=== PATIENT | male | born 1975 | race African-American/Black ===

== ENCOUNTER 2018-03-26 19:26 | Inpatient (IN) | payer MEDICAID ==
[~2018-03-26] VITALS: Ht 180.3 cm; Wt 88.9 kg
[2018-03-26 20:10] LABS: BASOPHILS % (AUTO) 0.5 % (0.0-2.0); EOSINOPHILS % (AUTO) 5.4 % (0.0-3.0); HEMATOCRIT 39.6 % (42.0-52.0); HEMOGLOBIN 12.6 G/DL (14.2-18.0); LYMPHOCYTES % (AUTO) 44.2 % (20.0-45.0); MEAN CORPUSCULAR VOLUME 76 FL (80-99); MONOCYTES % (AUTO) 10.4 % (1.0-10.0); NEUTROPHILS % (AUTO) 39.6 % (45.0-75.0); PLATELET COUNT 165 K/UL (150-450); RED BLOOD COUNT 5.19 M/UL (4.70-6.10); RED CELL DISTRIBUTION WIDTH 13.6 % (11.6-14.8); WHITE BLOOD COUNT 6.1 K/UL (4.8-10.8)
[2018-03-26 20:31] LABS: ANION GAP 9 mmol/L (5-15); BLOOD UREA NITROGEN 13 mg/dL (7-18); CALCIUM 9.2 MG/DL (8.5-10.1); CARBON DIOXIDE 26 MMOL/L (21-32); CHLORIDE 106 MMOL/L (98-107); CREATININE 1.3 MG/DL (0.55-1.30); POTASSIUM 3.8 MMOL/L (3.5-5.1); SODIUM 141 MMOL/L (136-145)
[2018-03-26 20:35] LABS: ALANINE AMINOTRANSFERASE 28 U/L (12-78); ALBUMIN 3.5 G/DL (3.4-5.0); ALBUMIN/GLOBULIN RATIO 0.6 (1.0-2.7); ALKALINE PHOSPHATASE 56 U/L (46-116); ASPARTATE AMINO TRANSFERASE 28 U/L (15-37); BILIRUBIN,TOTAL 0.2 MG/DL (0.2-1.0); CKMB 2.9 NG/ML (0.0-3.6); CREATINE KINASE 192 U/L (26-308)
[2018-03-26 21:05] VITALS: BP 149/95
[2018-03-26 21:14] LABS: APPEARANCE,URINE CLEAR; BILIRUBIN, URINE NEGATIVE (NEGATIVE); COLOR,URINE PALE YELLOW; GLUCOSE, URINE (UA) NEGATIVE (NEGATIVE); KETONES,URINE NEGATIVE (NEGATIVE); LEUKOCYTE ESTERASE ,URINE NEGATIVE (NEGATIVE); NITRITE,URINE NEGATIVE (NEGATIVE); PH,URINE 9 (4.5-8.0); PROTEIN,URINE NEGATIVE (NEGATIVE); UROBILINOGEN,URINE NORMAL MG/DL (0.0-1.0)
--- NOTE | 2018-03-26 21:32 | Emergency Room Report ---
History of Present Illness General Chief Complaint: Multiple Trauma/Fall Source: Patient, Medical Record Present Illness HPI This patient states he has a history of an arrhythmia that he is unable to articulate nature of. He states that about a year ago he had multiple episodes of fainting and had a heart attack and was found to have an arrhythmia. He states that a pacemaker and defibrillator was placed at that time. Over the past couple days, the patient has had several episodes of syncope. He states that today he had 2 episodes one of which was down a stairwell and another one was down an escalator. Patient also complains of chest pain. He states he was having the chest pain prior to the episodes but states the pain is worse. He also complains of headache. He denies neck pain. He denies recent illness. He denies fever or chills. He denies nausea or vomiting. He has no other complaints. Allergies: Coded Allergies: No Known Allergies (Unverified , 03/26/18) Patient History Past Medical History: see triage record, AL, CAD, CHF, arrhyth, HIV Past Surgical History: pacemaker - and defibrillator Social History: Denies: smoking, alcohol use, drug use Reviewed Nursing Documentation: PMH: Agreed; PSxH: Agreed Nursing Documentation-PMH Past Medical History: No History, Except For Hx Cardiac Problems: Yes - Heart attack, HIV, AIDS, ICD Hx Gastrointestinal Problems: No - oropharyngeal dysphagia History Of Psychiatric Problem: No - anxiety, Depression Hx Cerebrovascular Accident: Yes Review of Systems All Other Systems: negative except mentioned in HPI Physical Exam Vital Signs Date Time Temp Pulse Resp B/P (MAP) Pulse Ox O2 Delivery O2 Flow Rate FiO2 03/26/18 19:18 98.0 90 18 144/90 99 Room Air 98.1 Sp02 EP Interpretation: reviewed, normal General Appearance: no apparent distress, alert, GCS 15, non-toxic Head: normocephalic, atraumatic Eyes: bilateral eye normal inspection, bilateral eye PERRL ENT: hearing grossly normal, normal pharynx, no angioedema, normal voice Neck: full range of motion, supple/symm/no masses Respiratory: lungs clear, normal breath sounds, no respiratory distress, no retraction, no accessory muscle use, speaking full sentences, other - TTP on Chest wall diffusely Cardiovascular #1: regular rate, rhythm, no edema Gastrointestinal: normal bowel sounds, non tender, soft, non-distended, no guarding, no rebound Rectal: deferred Musculoskeletal: back normal, gait/station normal, normal range of motion, non- tender Neurologic: alert, oriented x3, responsive, motor strength/tone normal, sensory intact, speech normal Psychiatric: judgement/insight normal, memory normal, mood/affect normal, no suicidal/homicidal ideation Skin: normal color, no rash, warm/dry, well hydrated Medical Decision Making Diagnostic Impression: Primary Impression: Sternal fracture Additional Impression: Syncope ER Course This patient presents with multiple episodes of syncope over the past couple days. I'm concerned for arrhythmia or pacer failure. Although, the patient does not report any known defibrillator shocks. Regardless, given this patient' s history, I felt that this patient should be admitted to telemetry for further evaluation by cardiology and pacer/defibrillator interrogation. In the emergency department, the patient EKG, chest x-ray and troponin were unremarkable. He also underwent CT of the chest which did show a sternal fracture but did not show any evidence of PE or other chest pathology. The patient is admitted for further evaluation and treatment. See electronic medical record EKG Diagnostic Results Rate: normal Rhythm: other - Atrial rhythem ST Segments: no acute changes Other Impression LVH Rhythm Strip Diag. Results EP Interpretation: yes Rate: 70's Rhythm: other - Ectopic atrial rhythem Chest X-Ray Diagnostic Results Chest X-Ray Diagnostic Results : Chest X-Ray Ordered: Yes # of Views/Limited/Complete: 1 View Indication: Chest Pain EP Interpretation: Yes Interpretation: no consolidation, no effusion, no pneumothorax, no acute cardiopulmonary disease Impression: No acute disease Electronically Signed by: Espinoza CT/MRI/US Diagnostic Results CT/MRI/US Diagnostic Results : Imaging Test Ordered: CT head, CT Chest Impression CT head: No acute findings. See official report. CTA Chest: sternal fx. No other findings. See official report. Last Vital Signs Date Time Temp Pulse Resp B/P (MAP) Pulse Ox O2 Delivery O2 Flow Rate FiO2 03/26/18 21:05 98.0 78 22 149/95 96 Room Air 98.0 Disposition: ADMITTED INPATIENT Condition: Serious Scripts Hydrocodone Bit/Acetaminophen 5-325* (NORCO 5-325*) 1 Each Tablet 1 TAB ORAL Q4H PRN for 20 Days, #20 TAB 0 Refills Prov: Sola Arrington DO 03/30/18 Carvedilol (Coreg) 3.125 Mg Tablet 3.125 MG ORAL EVERY 12 HOURS for 30 Days, #60 TAB 0 Refills Prov: Sola Arrington DO 03/30/18 Atorvastatin Calcium* (LIPITOR*) 20 Mg Tablet 40 MG ORAL BEDTIME for 30 Days, #30 TAB 0 Refills Prov: Sola Arrington DO 03/30/18 Aspirin* (ASPIRIN*) 81 Mg Tab.chew 81 MG ORAL DAILY for 30 Days, #30 TAB 0 Refills Prov: Sola Arrington DO 03/30/18 Krissy Duenas DO Mar 26, 2018 21:32
[2018-03-26] MEDS ORDERED: Norco 5mg/325mg tab ORAL ONE (22:45)
[2018-03-26 23:00] VITALS: BP 140/90
[2018-03-26 23:45] VITALS: BP 117/71
[2018-03-27] MEDS ORDERED: Norco 5mg/325mg tab ORAL PRN (00:15)
[2018-03-27] MEDS: Heparin 5000 units/ml inj SUBQ SCH ×3 (00:37→20:53)
[2018-03-27] MEDS: HYDROcodone/Acetamin 10/325 tab ORAL PRN ×5 (00:37→22:03)
[2018-03-27 04:00] VITALS: BP 126/75
[2018-03-27 07:21] LABS: BASOPHILS % (AUTO) 1.1 % (0.0-2.0); EOSINOPHILS % (AUTO) 11.3 % (0.0-3.0); HEMOGLOBIN 11.9 G/DL (14.2-18.0); MEAN CORPUSCULAR VOLUME 74 FL (80-99); MONOCYTES % (AUTO) 11.8 % (1.0-10.0); NEUTROPHILS % (AUTO) 25.8 % (45.0-75.0); PLATELET COUNT 163 K/UL (150-450); RED BLOOD COUNT 4.99 M/UL (4.70-6.10); RED CELL DISTRIBUTION WIDTH 13.5 % (11.6-14.8); WHITE BLOOD COUNT 4.9 K/UL (4.8-10.8)
[2018-03-27 07:44] LABS: ALANINE AMINOTRANSFERASE 34 U/L (12-78); ALBUMIN/GLOBULIN RATIO 0.6 (1.0-2.7); ALKALINE PHOSPHATASE 56 U/L (46-116); ANION GAP 8 mmol/L (5-15); ASPARTATE AMINO TRANSFERASE 31 U/L (15-37); BILIRUBIN,TOTAL 0.2 MG/DL (0.2-1.0); BLOOD UREA NITROGEN 12 mg/dL (7-18); CALCIUM 8.9 MG/DL (8.5-10.1); CARBON DIOXIDE 25 MMOL/L (21-32); CHLORIDE 107 MMOL/L (98-107); CREATININE 1.2 MG/DL (0.55-1.30); POTASSIUM 3.9 MMOL/L (3.5-5.1); SODIUM 140 MMOL/L (136-145)
[2018-03-27 08:00] VITALS: BP 122/75
[2018-03-27] MEDS ORDERED: Heparin 5000 units/ml inj SUBQ SCH (09:00)
--- NOTE | 2018-03-27 09:15 | History and Physical ---
History of Present Illness General Date patient seen: Mar 27, 2018 Time patient seen: 09:15 Reason for Hospitalization: Multiple Trauma/Fall Present Illness HPI Pt is a 42 yo male w a PMH of HIV likely AIDS, CAD,pacemaker/defibrillator, stroke and he was brought in by EMS after a fall down an escalator. He states he 's been getting odd episodes of chest tightness and it feels like "something is pulling inside my chest." He states he also has worsening headaches, and it hurts worse when he laughs, sneezes or coughs.He states he has been compliant w / all of his meds including his HAART therapy except Norpace (disopyramide) which he thinks was making him feel worse. PMD/ID doctor is Allergies: Coded Allergies: No Known Allergies (Unverified , 03/26/18) Patient History History Provided By: Patient Healthcare decision maker Resuscitation status Full Code Advanced Directive on File No Review of Systems Constitutional: Reports: malaise, weakness Eye: Reports: double vision, other ENT: Reports: other - +headaches Respiratory: Reports: shortness of breath, BAILEY Cardiovascular: Reports: chest pain, syncope; Denies: edema Gastrointestinal: Reports: nausea, vomiting; Denies: abdominal pain Genitourinary: Denies: frequency, hematuria, pain Musculoskeletal: Reports: muscle pain, muscle stiffness Skin: Denies: rash, change in color, change in hair/nails Psychiatric: Reports: anxiety Neurological: Reports: headache Endocrine: Denies: intolerance to temperature, increased thirst Hematologic/Lymphatic: Denies: easy bleeding, easy bruising Physical Exam General Appearance: alert, mild distress Lines, tubes and drains: peripheral HEENT: normocephalic, atraumatic, anicteric, mucous membranes moist Neck: non-tender, normal alignment, supple, normal inspection Respiratory/Chest: chest wall non-tender, lungs clear, normal breath sounds, no respiratory distress Cardiovascular/Chest: normal peripheral pulses, normal rate, regular rhythm, pacemaker/AICD Abdomen: normal bowel sounds, non tender, soft, no organomegaly Extremities: normal range of motion, non-tender, normal inspection Skin Exam: normal pigmentation, warm/dry Neurologic: bottom finisher II-XII grossly normal, no motor/sensory deficits Musculoskeletal: normal muscle bulk Last 24 Hour Vital Signs Date Time Temp Pulse Resp B/P (MAP) Pulse Ox O2 Delivery O2 Flow Rate FiO2 03/27/18 08:00 97.3 57 18 122/75 (91) 100 97.3 03/27/18 06:42 97.2 03/27/18 04:00 97.2 63 20 126/75 (92) 100 97.2 03/27/18 04:00 65 03/27/18 00:00 Room Air 03/26/18 23:45 97.4 88 20 117/71 (86) 100 97.4 03/26/18 23:25 69 03/26/18 23:10 97.8 75 21 140/90 99 Room Air 97.8 03/26/18 23:00 97.8 75 21 140/90 99 Room Air 97.8 03/26/18 21:05 98.0 78 22 149/95 96 Room Air 98.0 03/26/18 19:18 98.0 90 18 144/90 99 Room Air 98.1 Intake and Output 03/26/18 03/27/18 19:00 07:00 Output Total 0 ml Balance 0 ml Output Urine Total 0 ml # Voids 2 Laboratory Tests Test 03/26/18 19:40 03/26/18 21:00 03/27/18 06:05 White Blood Count 6.1 K/UL (4.8-10.8) 4.9 K/UL (4.8-10.8) Red Blood Count 5.19 M/UL (4.70-6.10) 4.99 M/UL (4.70-6.10) Hemoglobin 12.6 G/DL (14.2-18.0) L 11.9 G/DL (14.2-18.0) L Hematocrit 39.6 % (42.0-52.0) L 37.0 % (42.0-52.0) L Mean Corpuscular Volume 76 FL (80-99) L 74 FL (80-99) L Mean Corpuscular Hemoglobin 24.3 PG (27.0-31.0) L 23.8 PG (27.0-31.0) L Mean Corpuscular Hemoglobin Concent 31.9 G/DL (32.0-36.0) L 32.2 G/DL (32.0-36.0) Red Cell Distribution Width 13.6 % (11.6-14.8) 13.5 % (11.6-14.8) Platelet Count 165 K/UL (150-450) 163 K/UL (150-450) Mean Platelet Volume 7.6 FL (6.5-10.1) 9.0 FL (6.5-10.1) Neutrophils (%) (Auto) 39.6 % (45.0-75.0) L 25.8 % (45.0-75.0) L Lymphocytes (%) (Auto) 44.2 % (20.0-45.0) 50.0 % (20.0-45.0) H Monocytes (%) (Auto) 10.4 % (1.0-10.0) H 11.8 % (1.0-10.0) H Eosinophils (%) (Auto) 5.4 % (0.0-3.0) H 11.3 % (0.0-3.0) H Basophils (%) (Auto) 0.5 % (0.0-2.0) 1.1 % (0.0-2.0) Prothrombin Time 11.0 SEC (9.30-11.50) Prothromb Time International Ratio 1.0 (0.9-1.1) Activated Partial Thromboplast Time 26 SEC (23-33) Sodium Level 141 MMOL/L (136-145) 140 MMOL/L (136-145) Potassium Level 3.8 MMOL/L (3.5-5.1) 3.9 MMOL/L (3.5-5.1) Chloride Level 106 MMOL/L (98-107) 107 MMOL/L (98-107) Carbon Dioxide Level 26 MMOL/L (21-32) 25 MMOL/L (21-32) Anion Gap 9 mmol/L (5-15) 8 mmol/L (5-15) Blood Urea Nitrogen 13 mg/dL (7-18) 12 mg/dL (7-18) Creatinine 1.3 MG/DL (0.55-1.30) 1.2 MG/DL (0.55-1.30) Estimat Glomerular Filtration Rate > 60 mL/min (>60) > 60 mL/min (>60) Glucose Level 99 MG/DL (74-106) 96 MG/DL (74-106) Calcium Level 9.2 MG/DL (8.5-10.1) 8.9 MG/DL (8.5-10.1) Total Bilirubin 0.2 MG/DL (0.2-1.0) 0.2 MG/DL (0.2-1.0) Aspartate Amino Transf (AST/SGOT) 28 U/L (15-37) 31 U/L (15-37) Alanine Aminotransferase (ALT/SGPT) 28 U/L (12-78) 34 U/L (12-78) Alkaline Phosphatase 56 U/L (46-116) 56 U/L (46-116) Total Creatine Kinase 192 U/L (26-308) Creatine Kinase MB 2.9 NG/ML (0.0-3.6) Creatine Kinase MB Relative Index 1.5 Troponin I 0.042 ng/mL (0.000-0.056) 0.050 ng/mL (0.000-0.056) Total Protein 9.1 G/DL (6.4-8.2) H 8.1 G/DL (6.4-8.2) Albumin 3.5 G/DL (3.4-5.0) 3.0 G/DL (3.4-5.0) L Globulin 5.6 g/dL 5.1 g/dL Albumin/Globulin Ratio 0.6 (1.0-2.7) L 0.6 (1.0-2.7) L Lipase 91 U/L (73-393) Urine Color Pale yellow Urine Appearance Clear Urine pH 9 (4.5-8.0) Urine Specific [place] 1.015 (1.005-1.035) Urine Protein Negative (NEGATIVE) Urine Glucose (UA) Negative (NEGATIVE) Urine Ketones Negative (NEGATIVE) Urine Blood Negative (NEGATIVE) Urine Nitrite Negative (NEGATIVE) Urine Bilirubin Negative (NEGATIVE) Urine Urobilinogen Normal MG/DL (0.0-1.0) Urine Leukocyte Esterase Negative (NEGATIVE) Urine Opiates Screen Negative (NEGATIVE) Urine Barbiturates Screen Negative (NEGATIVE) Phencyclidine (PCP) Screen Negative (NEGATIVE) Urine Amphetamines Screen Negative (NEGATIVE) Urine Benzodiazepines Screen Negative (NEGATIVE) Urine Cocaine Screen Negative (NEGATIVE) Urine Marijuana (THC) Screen Negative (NEGATIVE) Pro-B-Type Natriuretic Peptide 1694 pg/mL (0-125) H Height (Feet): 5 Height (Inches): 11.00 Weight (Pounds): 196 Medications Current Medications Medications (Trade) Dose Ordered Sig/Fabian Route PRN Reason Start Time Stop Time Status Last Admin Dose Admin Acetaminophen (Tylenol) 650 mg Q6H PRN ORAL Mild Pain/Temp > 100.5 03/27/18 00:15 04/26/18 00:14 Acetaminophen/ Hydrocodone Bitart ([place] 10/325) 1 tab Q4H PRN ORAL Severe Pain (Pain Scale 7-10) 03/27/18 00:15 04/03/18 00:14 03/27/18 06:42 Acetaminophen/ Hydrocodone Bitart ([place] 5/325) 1 tab Q4H PRN ORAL Moderate Pain (Pain Scale 4-6) 03/27/18 00:15 04/03/18 00:14 Heparin Sodium (Porcine) (Heparin 5000 units/ml) 5,000 units EVERY 12 HOURS SUBQ 03/27/18 00:30 04/26/18 00:29 03/27/18 00:37 Assessment/Plan Problem List: (1) Chest pain ICD Codes: R07.9 - Chest pain, unspecified SNOMED: 36766826 (2) Sternal fracture ICD Codes: S22.20XA - Unspecified fracture of sternum, initial encounter for closed fracture SNOMED: 58587992 (3) HIV (human immunodeficiency virus infection) ICD Codes: B20 - Human immunodeficiency virus [HIV] disease SNOMED: 58107054 (4) CAD (coronary artery disease) ICD Codes: I25.10 - Atherosclerotic heart disease of [place] coronary artery without angina pectoris SNOMED: 39081370 (5) Pacemaker ICD Codes: Z95.0 - Presence of cardiac pacemaker SNOMED: 685309677 (6) Stroke ICD Codes: I63.9 - Cerebral infarction, unspecified SNOMED: 975793383 Assessment/Plan CHEST PAIN r/o cardiac disease f/u troponin cardiology on consult w/ unknown details of his cardiac hx although he states he had a DE and has a pacemaker Sternal fracture S/P fall ice pack and rest recommended unknown chronicity per records endorsed from nurse will follow up official read, will treat conservatively for now physical therapy ordered HIV per records pt was on Bactrim therefore likely CD4 <200 and AIDS diagnosed will recommend pt to continue HAART therapy and his prophylaxis therapy Headache MRI brain to r/o PML or other HIV related diseases will treat symptomatically Valentina Grijalva D.O. Mar 27, 2018 09:15
[2018-03-27] MEDS ORDERED: Albuterol/Ipratropium 3ml neb HHN PRN (09:45)
--- NOTE | 2018-03-27 10:41 | Cardiac Electrophysiology PN ---
Subjective Subjective [id number] Objective Last 24 Hour Vital Signs Date Time Temp Pulse Resp B/P (MAP) Pulse Ox O2 Delivery O2 Flow Rate FiO2 03/27/18 08:00 97.3 57 18 122/75 (91) 100 97.3 03/27/18 06:42 97.2 03/27/18 04:00 97.2 63 20 126/75 (92) 100 97.2 03/27/18 04:00 65 03/27/18 00:00 Room Air 03/26/18 23:45 97.4 88 20 117/71 (86) 100 97.4 03/26/18 23:25 69 03/26/18 23:10 97.8 75 21 140/90 99 Room Air 97.8 03/26/18 23:00 97.8 75 21 140/90 99 Room Air 97.8 03/26/18 21:05 98.0 78 22 149/95 96 Room Air 98.0 03/26/18 19:18 98.0 90 18 144/90 99 Room Air 98.1 Intake and Output 03/26/18 03/27/18 19:00 07:00 Output Total 0 ml Balance 0 ml Output Urine Total 0 ml # Voids 2 Laboratory Tests Test 03/26/18 19:40 03/26/18 21:00 03/27/18 06:05 White Blood Count 6.1 K/UL (4.8-10.8) 4.9 K/UL (4.8-10.8) Red Blood Count 5.19 M/UL (4.70-6.10) 4.99 M/UL (4.70-6.10) Hemoglobin 12.6 G/DL (14.2-18.0) L 11.9 G/DL (14.2-18.0) L Hematocrit 39.6 % (42.0-52.0) L 37.0 % (42.0-52.0) L Mean Corpuscular Volume 76 FL (80-99) L 74 FL (80-99) L Mean Corpuscular Hemoglobin 24.3 PG (27.0-31.0) L 23.8 PG (27.0-31.0) L Mean Corpuscular Hemoglobin Concent 31.9 G/DL (32.0-36.0) L 32.2 G/DL (32.0-36.0) Red Cell Distribution Width 13.6 % (11.6-14.8) 13.5 % (11.6-14.8) Platelet Count 165 K/UL (150-450) 163 K/UL (150-450) Mean Platelet Volume 7.6 FL (6.5-10.1) 9.0 FL (6.5-10.1) Neutrophils (%) (Auto) 39.6 % (45.0-75.0) L 25.8 % (45.0-75.0) L Lymphocytes (%) (Auto) 44.2 % (20.0-45.0) 50.0 % (20.0-45.0) H Monocytes (%) (Auto) 10.4 % (1.0-10.0) H 11.8 % (1.0-10.0) H Eosinophils (%) (Auto) 5.4 % (0.0-3.0) H 11.3 % (0.0-3.0) H Basophils (%) (Auto) 0.5 % (0.0-2.0) 1.1 % (0.0-2.0) Prothrombin Time 11.0 SEC (9.30-11.50) Prothromb Time International Ratio 1.0 (0.9-1.1) Activated Partial Thromboplast Time 26 SEC (23-33) Sodium Level 141 MMOL/L (136-145) 140 MMOL/L (136-145) Potassium Level 3.8 MMOL/L (3.5-5.1) 3.9 MMOL/L (3.5-5.1) Chloride Level 106 MMOL/L (98-107) 107 MMOL/L (98-107) Carbon Dioxide Level 26 MMOL/L (21-32) 25 MMOL/L (21-32) Anion Gap 9 mmol/L (5-15) 8 mmol/L (5-15) Blood Urea Nitrogen 13 mg/dL (7-18) 12 mg/dL (7-18) Creatinine 1.3 MG/DL (0.55-1.30) 1.2 MG/DL (0.55-1.30) Estimat Glomerular Filtration Rate > 60 mL/min (>60) > 60 mL/min (>60) Glucose Level 99 MG/DL (74-106) 96 MG/DL (74-106) Calcium Level 9.2 MG/DL (8.5-10.1) 8.9 MG/DL (8.5-10.1) Total Bilirubin 0.2 MG/DL (0.2-1.0) 0.2 MG/DL (0.2-1.0) Aspartate Amino Transf (AST/SGOT) 28 U/L (15-37) 31 U/L (15-37) Alanine Aminotransferase (ALT/SGPT) 28 U/L (12-78) 34 U/L (12-78) Alkaline Phosphatase 56 U/L (46-116) 56 U/L (46-116) Total Creatine Kinase 192 U/L (26-308) Creatine Kinase MB 2.9 NG/ML (0.0-3.6) Creatine Kinase MB Relative Index 1.5 Troponin I 0.042 ng/mL (0.000-0.056) 0.050 ng/mL (0.000-0.056) Total Protein 9.1 G/DL (6.4-8.2) H 8.1 G/DL (6.4-8.2) Albumin 3.5 G/DL (3.4-5.0) 3.0 G/DL (3.4-5.0) L Globulin 5.6 g/dL 5.1 g/dL Albumin/Globulin Ratio 0.6 (1.0-2.7) L 0.6 (1.0-2.7) L Lipase 91 U/L (73-393) Urine Color Pale yellow Urine Appearance Clear Urine pH 9 (4.5-8.0) Urine Specific [place] 1.015 (1.005-1.035) Urine Protein Negative (NEGATIVE) Urine Glucose (UA) Negative (NEGATIVE) Urine Ketones Negative (NEGATIVE) Urine Blood Negative (NEGATIVE) Urine Nitrite Negative (NEGATIVE) Urine Bilirubin Negative (NEGATIVE) Urine Urobilinogen Normal MG/DL (0.0-1.0) Urine Leukocyte Esterase Negative (NEGATIVE) Urine Opiates Screen Negative (NEGATIVE) Urine Barbiturates Screen Negative (NEGATIVE) Phencyclidine (PCP) Screen Negative (NEGATIVE) Urine Amphetamines Screen Negative (NEGATIVE) Urine Benzodiazepines Screen Negative (NEGATIVE) Urine Cocaine Screen Negative (NEGATIVE) Urine Marijuana (THC) Screen Negative (NEGATIVE) Pro-B-Type Natriuretic Peptide 1694 pg/mL (0-125) H Nba Ngo MD Mar 27, 2018 10:41
--- NOTE | 2018-03-27 11:36 | Diagnostic Imaging Report ---
Indication: Headache Technique: Contiguous 5 mm thick transaxial imaging of the head obtained in a Siemens Sensation [address] scanner. Soft tissue and bone windows generated. Automatic Exposure Control was utilized. Total Dose length Product (DLP): 1456.[address] Dose Index Volume (CTDIvol): 70.38 mGy Comparison: none Findings: The size and configuration of the cortical sulci, basal cisterns, and ventricles are within normal limits for age. There is no mass effect, midline shift, or edema identified. There is no evidence of acute hemorrhage or abnormal intra-axial or extra-axial fluid collections. The bones and soft tissues are unremarkable. Impression: No mass effect, edema or acute bleed. The CT scanner at [facility] is accredited by the [employer] and the scans are performed using dose optimization techniques as appropriate to a performed exam including Automatic Exposure control.
--- NOTE | 2018-03-27 11:47 | Diagnostic Imaging Report ---
Indication: Chest pain Technique: Continuous helical transaxial imaging of the chest was obtained from the thoracic inlet to the upper abdomen. No intravenous contrast was administered. Coronal 2-D reformats were also obtained. Total Dose length Product (DLP): 1036.[address] Dose Index Volume (CTDIvol): 23.44 mGy Comparison: none Findings: Pacemaker is noted. Generalized cardiomegaly demonstrated. Mild posterior basal atelectasis noted. No consolidation, nodules, pleural disease or abnormal fluid collections are identified. Visualized part of the upper abdomen is unremarkable. There is an apparent nondisplaced fracture of the mid sternum. This may be old. No soft tissue swelling or hematoma identified. Please correlate clinically IMPRESSION: Apparent sternal fracture. Acuity is indeterminate. Please correlate clinically. Pacemaker noted. Cardiomegaly. [facility] has communicated the preliminary results to the Emergency Department. Their findings are largely concordant with this report. The CT scanner at [facility] is accredited by the [employer] and the scans are performed using dose optimization techniques as appropriate to a performed exam including Automatic Exposure control.
[2018-03-27 12:00] VITALS: BP 115/71
--- NOTE | 2018-03-27 13:03 | Cardiology Report ---
APPROVED REPORT EXAM: Two-dimensional and M-mode echocardiogram with Doppler and color Doppler. INDICATION Syncope M-Mode DIMENSIONS IVSd1.9 (0.7-1.1cm)Left Atrium (MM)3.4 (1.6-4.0cm) LVDd4.4 (3.5-5.6cm)Aortic Root3.8 (2.0-3.7cm) PWd1.4 (0.7-1.1cm)Aortic Cusp Exc.2.4 (1.5-2.0cm) IVSs2.8 cm LVDs2.4 (2.5-4.0cm) PWs1.8 cm Normal left ventricular chamber size, systolic function and wall motion. Left ventricular ejection fraction estimated to be 75%. Moderate to severe concentric left ventricular hypertrophy by 2-D. No evidence pericardial effusion. Borderline Mild left atrial enlargement . Right cardiac chamber sizes are within normal limits . Focal aortic valve sclerosis with normalcusp excursion. Mildly Thickened mitral valve leaflets with normal excursion. Milldy Mitral annulus and aortic root calcification. Pulmonic valve not well visualized. Normal tricuspid valve structure. . IVC at size 2.2cm with physiologic collapse , suggestive increase RA pressure. A color flow and spectral Doppler study was performed and revealed: No aortic regurgitation. Mild mitral regurgitation. Normal left ventricular diastolic function . Trace tricuspid regurgitation. Tricuspid systolic velocities suggests peak right ventricular systolic pressure of 20mmHg.
--- NOTE | 2018-03-27 13:21 | Cardiology Report ---
APPROVED REPORT EKG Measurement Heart [id number] Ectopic atrial rhythm Left ventricular hypertrophy with repolarization abnormality Prolonged QT Abnormal ECG
--- NOTE | 2018-03-27 13:23 | Cardiology Report ---
APPROVED REPORT EKG Measurement Heart [id number] [place] [id number] Normal sinus rhythm Left ventricular hypertrophy with repolarization abnormality Abnormal ECG
--- NOTE | 2018-03-27 13:39 | Diagnostic Imaging Report ---
Indication: Chest pain Comparison: None A single view chest radiograph was obtained. Findings: Cardiomediastinal appearance is within normal limits for age. Left pacemaker noted. The lungs are clear. Pulmonary vascularity is appropriate. The diaphragmatic contour is smooth and costophrenic angles are sharp. No pleural effusions are identified. The bones are unremarkable. Impression: No acute findings
[2018-03-27 16:00] VITALS: BP 124/73
[2018-03-27 20:00] VITALS: BP 118/79
--- NOTE | 2018-03-27 22:30 | Consultation ---
DATE OF CONSULTATION: 03/27/2018 CARDIOLOGY CONSULTATION CONSULTING PHYSICIAN: Nba Ngo M.D. REFERRING PHYSICIAN: Aliza Álvarez M.D. REASON FOR CONSULTATION: Evaluation of the patient's defibrillator. HISTORY OF PRESENT ILLNESS: The patient is a 42-year-old gentleman with history of HIV, AIDS, and history of congestive heart failure as well as history of defibrillator implantation about a couple of years ago at [facility], who was brought in by paramedics after he fell and found in an escalator. The patient also had chest tightness. The patient stated he was compliant with his HAART therapy except for Norpace which was making worse. The patient was admitted and Cardiology consultation was obtained for further evaluation and management. The reason for defibrillator implantation is not clear, but as the patient is on Norpace, it is possible that he might have hypertrophic cardiomyopathy. REVIEW OF SYSTEMS: Negative other than what was mentioned in the history of present illness. PAST MEDICAL HISTORY: As mentioned above. FAMILY HISTORY: Noncontributory. PHYSICAL EXAMINATION: VITAL SIGNS: Show blood pressure of 132/75, pulse 60, respirations 18, and temperature 97.3. HEAD AND NECK: Showed no JVD. LUNGS: Coarse rhonchi. CARDIOVASCULAR: Shows regular S1 and S2 with no gallop. Defibrillator is in the left subclavian. ABDOMEN: Soft. EXTREMITIES: No pitting edema. LABORATORY AND DIAGNOSTIC DATA: His EKG shows sinus rhythm with severe left ventricular hypertrophy, repolarization abnormality as well as prolonged QT with recorded QT of 490 msec. His laboratories show now white count 4.9, hemoglobin 11.9, hematocrit 37, and platelet count 163,000. Sodium 140, potassium 3.9, BUN of 12, creatinine 1.2. Troponin negative x2. Urine toxicology is negative. ASSESSMENT AND PLAN: 1. Status post fall versus syncope. We will try to interrogate the defibrillator to find out whether it was arrhythmia related. We will watch the patient on telemetry and get an echocardiogram for further evaluation and management. 2. Status post defibrillator implantation. The patient does not know the brand. We will try to find the brand and interrogate that. 3. Severe LVH on the EKG. The patient could have had hypertrophic cardiomyopathy defibrillator. The patient was on Norpace, but he has not taken it as he cannot tolerate it. Echocardiogram is pending. 4. HIV, on retroviral therapy. Thank you very much for allowing me to participate in the care of this patient. Please do not hesitate to contact me for any questions regarding my evaluation. Nba Ngo M.D. DR: Tang JOB#: [id number] CC:
[2018-03-28] VITALS: BP 108/73
--- NOTE | 2018-03-28 00:45 | Progress Note ---
DATE: 03/27/2018 SUBJECTIVE: The patient is a 42-year-old male with a past medical history of schizophrenia, HIV, CAD, pacemaker/defibrillator, stroke, who was admitted to the hospital for multiple trauma and falls. The patient stated that he has been presenting with paranoid ideation and delusional, he stated and plus he has been on Valium and risperidone, requested to be on risperidone during the evaluation. The patient stated that he lives in [place] and he stated he has a psychiatrist outside of the hospital and has not been seeing on a regular basis. He agreed to take medication. No suicidal or homicidal ideations. No manic symptoms. PAST PSYCHIATRIC HISTORY: He has a history of schizophrenia, stated that he has been on Valium for anxiety and risperidone for hearing voices and being paranoid. PAST MEDICAL HISTORY: As above. ALLERGIES: No known drug allergies. SUBSTANCE ABUSE HISTORY: He denies illicit drug use or alcohol. He stated he is nonsmoker. MENTAL STATUS EXAMINATION: The patient is alert, oriented times self, place, and situation he is in. He did not have any cognitive impairment. His mood was anxious and dysphoric. Affect was constricted. Congruent with mood. Thought process is concrete. Thought content, no suicidal or homicidal ideation. ASSESSMENT: Blevins I Schizophrenia. Anxiety disorder. Blevins II Deferred. Blevins III As above. Blevins IV Low. Blevins V 20. PLAN: 1. The patient will be started on risperidone 2 mg at bedtime. We will hold off on Valium now. 2. Provide the patient with reality orientation and supportive therapy. Discussed with the primary team. Zara Herrera M.D. DR: SAMARA JOB#: [id number] CC:
[2018-03-28 04:00] VITALS: BP 117/71
[2018-03-28] MEDS: HYDROcodone/Acetamin 10/325 tab ORAL PRN ×4 (04:38→20:13)
[2018-03-28 08:00] VITALS: BP 118/68
[2018-03-28] MEDS: Heparin 5000 units/ml inj SUBQ SCH ×2 (08:44→20:11)
[2018-03-28] MEDS: Aspirin Baby 81mg ORAL SCH (08:44)
--- NOTE | 2018-03-28 11:03 | General Progress Note ---
Assessment/Plan Problem List: (1) Chest pain ICD Codes: R07.9 - Chest pain, unspecified SNOMED: 13009558 (2) Sternal fracture ICD Codes: S22.20XA - Unspecified fracture of sternum, initial encounter for closed fracture SNOMED: 36705560 (3) HIV (human immunodeficiency virus infection) ICD Codes: B20 - Human immunodeficiency virus [HIV] disease SNOMED: 44274150 (4) CAD (coronary artery disease) ICD Codes: I25.10 - Atherosclerotic heart disease of [place] coronary artery without angina pectoris SNOMED: 91248460 (5) Pacemaker ICD Codes: Z95.0 - Presence of cardiac pacemaker SNOMED: 382570444 (6) Stroke ICD Codes: I63.9 - Cerebral infarction, unspecified SNOMED: 362453416 Assessment/Plan Assessment/Plan Problem List: (1) Chest pain ICD Codes: R07.9 - Chest pain, unspecified SNOMED: 68423333 (2) Sternal fracture ICD Codes: S22.20XA - Unspecified fracture of sternum, initial encounter for closed fracture SNOMED: 53512864 (3) HIV (human immunodeficiency virus infection) ICD Codes: B20 - Human immunodeficiency virus [HIV] disease SNOMED: 72673679 (4) CAD (coronary artery disease) ICD Codes: I25.10 - Atherosclerotic heart disease of [place] coronary artery without angina pectoris SNOMED: 53966081 (5) Pacemaker ICD Codes: Z95.0 - Presence of cardiac pacemaker SNOMED: 019725587 (6) Stroke ICD Codes: I63.9 - Cerebral infarction, unspecified SNOMED: 709640729 Assessment/Plan Chest Pain r/o cardiac disease troponin trending down cardiology on consult w/ unknown details of his cardiac hx although he states he had a [place] and has a pacemaker Sternal fracture S/P fall ice pack and rest recommended unknown chronicity per records endorsed from nurse will follow up official read, will treat conservatively for now physical therapy ordered HIV per records pt was on Bactrim therefore likely CD4 <200 and AIDS diagnosed will recommend pt to continue HAART therapy and his prophylaxis therapy Headache CT head neg Subjective Date patient seen: Mar 28, 2018 Time patient seen: 11:03 Allergies: Coded Allergies: No Known Allergies (Unverified , 03/26/18) Subjective Pt seen and examined, he states he's slightly better today but still not pain free. Objective Last 24 Hour Vital Signs Date Time Temp Pulse Resp B/P (MAP) Pulse Ox O2 Delivery O2 Flow Rate FiO2 03/28/18 08:00 60 03/28/18 08:00 97.2 71 20 118/68 (85) 98 97.2 03/28/18 04:16 65 03/28/18 04:00 98.5 63 20 117/71 (86) 98 98.5 03/28/18 00:01 71 03/28/18 00:00 98.1 72 20 108/73 (85) 97 98.1 03/27/18 21:00 Room Air 03/27/18 20:00 97.6 65 21 118/79 (92) 98 97.6 03/27/18 19:52 66 03/27/18 16:00 97.0 60 18 124/73 (90) 97 97.0 03/27/18 16:00 58 03/27/18 12:28 97.0 03/27/18 12:00 97.0 64 18 115/71 (86) 100 97.0 03/27/18 12:00 60 03/27/18 11:58 97.3 03/27/18 11:21 Room Air Intake and Output 03/27/18 03/28/18 18:59 06:59 Output Total 1000 ml Balance -1000 ml Output Urine Total 1000 ml # Voids 1 3 Laboratory Tests 03/27/18 13:00: D-Dimer 0.27, Troponin I 0.046 03/27/18 18:45: Troponin I 0.039 03/28/18 05:45: Pro-B-Type Natriuretic Peptide 1489H Height (Feet): 5 Height (Inches): 11.00 Weight (Pounds): 196 Valentina Grijalva D.O. Mar 28, 2018 11:03
[2018-03-28 12:00] VITALS: BP 123/77
--- NOTE | 2018-03-28 12:37 | Cardiac Electrophysiology PN ---
Assessment/Plan Assessment/Plan 1. Status post fall versus syncope. Will interrogate the defibrillator. No arrhythmias on telemetry. 2. Status post Medtronic defibrillator implantation. 3. Severe LVH on the EKG. Echo EF 75% with LVH. Probably has hypertrophic cardiomyopathy. The patient was on Norpace, but he has not taken it as he cannot tolerate it. 4. HIV, on retroviral therapy. Subjective Subjective On Tele. Still complains of CP. Objective Last 24 Hour Vital Signs Date Time Temp Pulse Resp B/P (MAP) Pulse Ox O2 Delivery O2 Flow Rate FiO2 03/28/18 12:00 97.5 55 20 123/77 (92) 98 97.5 03/28/18 09:00 Room Air 03/28/18 08:00 60 03/28/18 08:00 97.2 71 20 118/68 (85) 98 97.2 03/28/18 04:16 65 03/28/18 04:00 98.5 63 20 117/71 (86) 98 98.5 03/28/18 00:01 71 03/28/18 00:00 98.1 72 20 108/73 (85) 97 98.1 03/27/18 21:00 Room Air 03/27/18 20:00 97.6 65 21 118/79 (92) 98 97.6 03/27/18 19:52 66 03/27/18 16:00 97.0 60 18 124/73 (90) 97 97.0 03/27/18 16:00 58 Intake and Output 03/27/18 03/28/18 18:59 06:59 Output Total 1000 ml Balance -1000 ml Output Urine Total 1000 ml # Voids 1 3 Laboratory Tests Test 03/27/18 13:00 03/27/18 18:45 03/28/18 05:45 D-Dimer 0.27 mg/L FEU (0.00-0.49) Troponin I 0.046 ng/mL (0.000-0.056) 0.039 ng/mL (0.000-0.056) Pro-B-Type Natriuretic Peptide 1489 pg/mL (0-125) H Objective HEAD AND NECK: No JVD. LUNGS: Coarse rhonchi. CARDIOVASCULAR: Shows regular S1 and S2 with no gallop. Defibrillator is in the left subclavian. ABDOMEN: Soft. EXTREMITIES: No pitting edema. Nba Ngo MD Mar 28, 2018 12:37
[2018-03-28 16:28] VITALS: BP 101/70
[2018-03-28 20:00] VITALS: BP 118/73
[2018-03-29] VITALS: BP 123/69
[2018-03-29] MEDS: HYDROcodone/Acetamin 10/325 tab ORAL PRN ×4 (00:48→20:00)
[2018-03-29 04:00] VITALS: BP 116/66
[2018-03-29 08:00] VITALS: BP 120/69
[2018-03-29] MEDS ORDERED: Ritonavir 100mg tab ORAL SCH (09:15)
[2018-03-29] MEDS: Aspirin Baby 81mg ORAL SCH (09:50)
[2018-03-29] MEDS: Heparin 5000 units/ml inj SUBQ SCH ×2 (09:54→20:41)
--- NOTE | 2018-03-29 09:55 | General Progress Note ---
Assessment/Plan Problem List: (1) Chest pain ICD Codes: R07.9 - Chest pain, unspecified SNOMED: 52834807 (2) Sternal fracture ICD Codes: S22.20XA - Unspecified fracture of sternum, initial encounter for closed fracture SNOMED: 42604455 (3) CAD (coronary artery disease) ICD Codes: I25.10 - Atherosclerotic heart disease of [place] coronary artery without angina pectoris SNOMED: 81831964 (4) Pacemaker ICD Codes: Z95.0 - Presence of cardiac pacemaker SNOMED: 444830481 (5) HIV (human immunodeficiency virus infection) ICD Codes: B20 - Human immunodeficiency virus [HIV] disease SNOMED: 72891800 Assessment/Plan Chest Pain r/o cardiac disease troponin trending down cardiology on consult w/ unknown details of his cardiac hx although he states he had a [place] and has a pacemaker restart lipitor, and coreg, cont asa once patients defibrillator is inspected patient may go home Sternal fracture S/P fall ice pack and rest recommended unknown chronicity per records endorsed from nurse will follow up official read, will treat conservatively for now physical therapy ordered HIV per records pt was on Bactrim therefore likely CD4 <200 and AIDS diagnosed will recommend pt to continue HAART therapy and his prophylaxis therapy Headache CT head neg Subjective Date patient seen: Mar 29, 2018 Time patient seen: 09:00 Constitutional: Reports: other Allergies: Coded Allergies: No Known Allergies (Unverified , 03/26/18) All Systems: reviewed and negative except above Subjective Patient continued to have body aches from fall. Denies fevers, chills, N, V Objective Last 24 Hour Vital Signs Date Time Temp Pulse Resp B/P (MAP) Pulse Ox O2 Delivery O2 Flow Rate FiO2 03/29/18 04:00 60 03/29/18 04:00 98.1 59 18 116/66 (83) 97 98.1 03/29/18 00:00 76 03/29/18 00:00 98.1 75 19 123/69 (87) 98 98.1 03/28/18 21:00 Room Air 03/28/18 20:18 68 20 Room Air 21 03/28/18 20:00 97.9 84 19 118/73 (88) 98 97.9 03/28/18 20:00 75 03/28/18 16:28 97.5 60 20 101/70 (80) 98 97.5 03/28/18 15:37 60 03/28/18 12:00 56 03/28/18 12:00 97.5 55 20 123/77 (92) 98 97.5 Intake and Output 03/28/18 03/29/18 19:00 07:00 Intake Total 800 ml 480 ml Output Total 1100 ml 825 ml Balance -300 ml -345 ml Intake Oral 800 ml 480 ml Output Urine Total 1100 ml 825 ml Height (Feet): 5 Height (Inches): 11.00 Weight (Pounds): 196 General Appearance: WD/WN, no apparent distress, alert EENT: PERRL/EOMI, normal ENT inspection, TMs normal Neck: non-tender, normal alignment, supple, normal inspection Cardiovascular: normal rate, regular rhythm, regularly irregular, no gallop/ murmur, no JVD Respiratory/Chest: lungs clear, normal breath sounds, no respiratory distress, no accessory muscle use, other - chest wall tender to palpation, no bruising or erythema noted Abdomen: normal bowel sounds, non tender, soft, no organomegaly, no mass Extremities: normal range of motion, other - diffuse tenderness on LE BL no swelling Edema: no edema noted Arm (L), no edema noted Arm (R), no edema noted Leg (L), no edema noted Leg (R), no edema noted Pedal (L), no edema noted Pedal (R), no edema noted 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
[2018-03-29] MEDS ORDERED: Bactrim-DS 1 tab ORAL SCH (10:30)
[2018-03-29 12:00] VITALS: BP 115/79
--- NOTE | 2018-03-29 14:56 | Cardiac Electrophysiology PN ---
Assessment/Plan Assessment/Plan 1. Status post fall versus syncope. No GA No arrhythmias on telemetry. 2. Status post Medtronic defibrillator implantation. Ni ICD shocks per patient 3. Severe LVH on the EKG. Echo EF 75% with LVH. Probably has hypertrophic cardiomyopathy. The patient was on Norpace, but he has not taken it as he cannot tolerate it. 4. HIV, on retroviral therapy. Subjective Subjective On Tele. Has chest wall tenderness Objective Last 24 Hour Vital Signs Date Time Temp Pulse Resp B/P (MAP) Pulse Ox O2 Delivery O2 Flow Rate FiO2 03/29/18 12:00 97.0 73 16 115/79 (91) 98 97.0 03/29/18 12:00 71 03/29/18 10:29 73 111/59 03/29/18 09:00 Room Air 03/29/18 08:00 62 03/29/18 08:00 97.4 64 18 120/69 (86) 97 97.4 03/29/18 04:00 60 03/29/18 04:00 98.1 59 18 116/66 (83) 97 98.1 03/29/18 00:00 76 03/29/18 00:00 98.1 75 19 123/69 (87) 98 98.1 03/28/18 21:00 Room Air 03/28/18 20:18 68 20 Room Air 21 03/28/18 20:00 97.9 84 19 118/73 (88) 98 97.9 03/28/18 20:00 75 03/28/18 16:28 97.5 60 20 101/70 (80) 98 97.5 03/28/18 15:37 60 Intake and Output 03/28/18 03/29/18 18:59 06:59 Intake Total 800 ml 480 ml Output Total 1100 ml 825 ml Balance -300 ml -345 ml Intake Oral 800 ml 480 ml Output Urine Total 1100 ml 825 ml Objective HEAD AND NECK: No JVD. LUNGS: Coarse rhonchi. CARDIOVASCULAR: Regular S1 and S2 with no gallop. Defibrillator is in the left subclavian. ABDOMEN: Soft. EXTREMITIES: No pitting edema. Nba Ngo MD Mar 29, 2018 14:56
[2018-03-29 16:00] VITALS: BP 129/62
[2018-03-29 20:00] VITALS: BP 111/63
[2018-03-29] MEDS ORDERED: Atorvastatin 20mg tab ORAL SCH (21:00)
[2018-03-30] VITALS: BP 108/61
[2018-03-30] MEDS: HYDROcodone/Acetamin 10/325 tab ORAL PRN ×2 (00:03→09:06)
[2018-03-30 04:00] VITALS: BP 107/70
[2018-03-30 08:00] VITALS: BP 109/64
[2018-03-30] MEDS: Aspirin Baby 81mg ORAL SCH (08:57)
[2018-03-30] MEDS: Heparin 5000 units/ml inj SUBQ SCH (08:59)
--- NOTE | 2018-03-30 09:06 | General Progress Note ---
Assessment/Plan Problem List: (1) Chest pain ICD Codes: R07.9 - Chest pain, unspecified SNOMED: 04542137 (2) Sternal fracture ICD Codes: S22.20XA - Unspecified fracture of sternum, initial encounter for closed fracture SNOMED: 37104824 (3) CAD (coronary artery disease) ICD Codes: I25.10 - Atherosclerotic heart disease of [place] coronary artery without angina pectoris SNOMED: 55186185 (4) Pacemaker ICD Codes: Z95.0 - Presence of cardiac pacemaker SNOMED: 163737862 (5) HIV (human immunodeficiency virus infection) ICD Codes: B20 - Human immunodeficiency virus [HIV] disease SNOMED: 07584129 Assessment/Plan Chest Pain r/o cardiac disease troponin trending down cardiology on consult w/ unknown details of his cardiac hx although he states he had a [place] and has a AICD restart lipitor, and coreg, cont asa patient has been cleared by cardiology and no longer requires interrogation of AICD Sternal fracture S/P fall ice pack and rest recommended unknown chronicity per records endorsed from nurse will follow up official read, will treat conservatively for now physical therapy ordered HIV per records pt was on Bactrim therefore likely CD4 <200 and AIDS diagnosed will recommend pt to continue HAART therapy and his prophylaxis therapy per pharmacy protocol patient is not able to receive HIV medications unless his own are brought from home, discussed with patient Headache CT head neg Dispo d/c home today Subjective ROS Limited/Unobtainable: No Allergies: Coded Allergies: No Known Allergies (Unverified , 03/26/18) All Systems: reviewed and negative except above Subjective Patient continued to have body aches from fall. Denies fevers, chills, N, V . Objective Last 24 Hour Vital Signs Date Time Temp Pulse Resp B/P (MAP) Pulse Ox O2 Delivery O2 Flow Rate FiO2 03/30/18 08:57 64 109/64 03/30/18 08:00 64 03/30/18 08:00 97.0 63 20 109/64 (79) 98 97.0 03/30/18 07:26 68 16 Room Air 21 03/30/18 04:00 65 03/30/18 04:00 97.5 65 20 107/70 (82) 97 97.5 03/30/18 00:00 97.1 75 20 108/61 (77) 96 97.1 03/30/18 00:00 69 03/29/18 21:00 Room Air 03/29/18 20:39 61 111/63 03/29/18 20:20 61 16 Room Air 21 03/29/18 20:00 75 03/29/18 20:00 98.4 74 20 111/63 (79) 98 98.4 03/29/18 16:00 77 03/29/18 16:00 98.3 60 16 129/62 (84) 99 98.3 03/29/18 12:00 97.0 73 16 115/79 (91) 98 97.0 03/29/18 12:00 71 03/29/18 10:29 73 111/59 Intake and Output 03/29/18 03/30/18 19:00 07:00 Intake Total 120 ml 120 ml Output Total 650 ml Balance -530 ml 120 ml Intake Oral 120 ml 120 ml Output Urine Total 650 ml # Voids 3 3 Height (Feet): 5 Height (Inches): 11.00 Weight (Pounds): 196 General Appearance: WD/WN, no apparent distress, alert EENT: PERRL/EOMI, normal ENT inspection, TMs normal Neck: non-tender, normal alignment, supple, normal inspection Cardiovascular: normal rate, regular rhythm, regularly irregular, no gallop/ murmur, no JVD Respiratory/Chest: lungs clear, normal breath sounds, no respiratory distress, no accessory muscle use, other - chest wall tender to palpation, no erythema Abdomen: non tender, soft, no organomegaly, no mass Extremities: normal range of motion, non-tender, normal inspection Edema: no edema noted Arm (L), no edema noted Arm (R), no edema noted Leg (L), no edema noted Leg (R), no edema noted Pedal (L), no edema noted Pedal (R), no edema noted 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
[2018-03-30] MEDS ORDERED: ASPIRIN81 MG ORAL (09:08)
[2018-03-30] MEDS ORDERED: COREG3.125 MG ORAL (09:08)
[2018-03-30] MEDS ORDERED: NORCO 5-325 TA1 EACH ORAL (09:08)
[2018-03-30] MEDS ORDERED: LIPITOR20 MG ORAL (09:08)
--- NOTE | 2018-03-30 09:09 | Discharge Instructions ---
Discharge Instructions Discharge Instructions Follow up with: Primary care and HIV doctor Diet: cardiac 2 GM Na, low fat Resume Normal Activity?: Yes - as tolerated For Surgical Patients Contact your physician for: other - worseing chest pain or shock by AICD For Congestive Heart Failure Reminder Report to your physician any weight gain of 5 pounds or more in one week. Sola Arrington DO Mar 30, 2018 09:09
--- NOTE | 2018-03-30 09:18 | Discharge Summary ---
Discharge Summary Hospital Course Date of Admission Mar 26, 2018 at 22:21 Date of Discharge 03/30/18 Admitting Diagnosis CP,SYNCOPE HPI Rick Duenas is a 42 year old male who was admitted on Mar 26, 2018 at 22:21 for Chest Pain/Syncope Consultations Cardiology: Dr. Ngo Hospital Course Pt is a 42 yo male w a PMH of HIV likely AIDS, CAD,pacemaker/defibrillator, stroke and he was brought in by EMS after a fall down an escalator. He states he 's been getting odd episodes of chest tightness and it feels like "something is pulling inside my chest." He states he also has worsening headaches, and it hurts worse when he laughs, sneezes or coughs.He states he has been compliant w / all of his meds including his HAART therapy except Norpace (disopyramide) which he thinks was making him feel worse. Patient was admitted to rule out ACS and cardiology consult was placed. Troponins were minimally elevated, suspected as cardiac leak per cardiology. See imaging results below. Ct chest showed sternal fracture of undetermined chronicity. Patient also had CT head in the setting of headache with negative result. Patients HIV medications were ordered but per pharmacy protocol patient would need to have his own meds from home brought in in order to have them administered. Discussed with patient the need for him to bring in him home meds but he seemed unaware of where they were placed and could not name his HIV doctor for confirmation. Patient had an uneventful stay with no events on cardiac nurse specialist and has now been cleared by cardiology for discharge home with no need for AICD interrogation. Imaging: CT HEAD Findings: The size and configuration of the cortical sulci, basal cisterns, and ventricles are within normal limits for age. There is no mass effect, midline shift, or edema identified. There is no evidence of acute hemorrhage or abnormal intra- axial or extra-axial fluid collections. The bones and soft tissues are unremarkable. Impression: No mass effect, edema or acute bleed. CXR Findings: Cardiomediastinal appearance is within normal limits for age. Left pacemaker noted. The lungs are clear. Pulmonary vascularity is appropriate. The diaphragmatic contour is smooth and costophrenic angles are sharp. No pleural effusions are identified. The bones are unremarkable. Impression: No acute findings CT CHEST IMPRESSION: Apparent sternal fracture. Acuity is indeterminate. Please correlate clinically. Pacemaker noted. Cardiomegaly. [facility] has communicated the preliminary results to the Emergency Department. Their findings are largely concordant with this report. The CT scanner at [facility] is accredited by the [employer] and the scans are performed using dose optimization techniques as appropriate to a performed exam including Automatic Exposure control. ECHO: Normal left ventricular chamber size, systolic function and wall motion. Left ventricular ejection fraction estimated to be 75%. Moderate to severe concentric left ventricular hypertrophy by 2-D. No evidence pericardial effusion. Borderline Mild left atrial enlargement . Right cardiac chamber sizes are within normal limits . Focal aortic valve sclerosis with normalcusp excursion. Mildly Thickened mitral valve leaflets with normal excursion. Milldy Mitral annulus and aortic root calcification. Pulmonic valve not well visualized. Normal tricuspid valve structure. . IVC at size 2.2cm with physiologic collapse , suggestive increase RA pressure. A color flow and spectral Doppler study was performed and revealed: No aortic regurgitation. Mild mitral regurgitation. Normal left ventricular diastolic function . Trace tricuspid regurgitation. Tricuspid systolic velocities suggests peak right ventricular systolic pressure of 20mmHg. Discharge Meds asa 81 mg PO daily lipitor 40 mg PO QHS coreg 3.125 mg PO BID norco 5/325 mg # 15 HIV meds cannot be refilled, will defer patient to his HIV doctor Discharge Condition Upon Discharge: stable Discharge Disposition Patient was discharged to home Discharge Diagnoses: (1) Sternal fracture (2) HIV (human immunodeficiency virus infection) Discharge Instructions Discharge Instructions Follow up with: Primary care and HIV doctor For Surgical Patients Contact your physician for: other - worseing chest pain or shock by Sola Wu DO Mar 30, 2018 09:18
[2018-03-30 12:00] VITALS: BP 113/75
[2018-03-30 16:00] VITALS: BP 109/70
--- NOTE | 2018-03-30 18:29 | Cardiac Electrophysiology PN ---
Assessment/Plan Assessment/Plan 1. Status post fall versus syncope. No arrhythmias on telemetry. 2. Status post Medtronic defibrillator implantation. Ni ICD shocks per patient 3. Severe LVH on the EKG. Echo EF 75% with LVH. Probably has hypertrophic cardiomyopathy. The patient was on Norpace, but he has not taken it as he cannot tolerate it. 4. HIV, on retroviral therapy. Subjective Subjective Awaiting DC today Objective Last 24 Hour Vital Signs Date Time Temp Pulse Resp B/P (MAP) Pulse Ox O2 Delivery O2 Flow Rate FiO2 03/30/18 16:00 97.6 76 18 109/70 (83) 99 97.6 03/30/18 12:00 97.5 70 20 113/75 (88) 99 97.5 03/30/18 12:00 71 03/30/18 09:00 Room Air 03/30/18 08:57 64 109/64 03/30/18 08:00 64 03/30/18 08:00 97.0 63 20 109/64 (79) 98 97.0 03/30/18 07:26 68 16 Room Air 21 03/30/18 04:00 65 03/30/18 04:00 97.5 65 20 107/70 (82) 97 97.5 03/30/18 00:00 97.1 75 20 108/61 (77) 96 97.1 03/30/18 00:00 69 03/29/18 21:00 Room Air 03/29/18 20:39 61 111/63 03/29/18 20:20 61 16 Room Air 21 03/29/18 20:00 75 03/29/18 20:00 98.4 74 20 111/63 (79) 98 98.4 Intake and Output 03/29/18 03/30/18 18:59 06:59 Intake Total 120 ml 120 ml Output Total 650 ml Balance -530 ml 120 ml Intake Oral 120 ml 120 ml Output Urine Total 650 ml # Voids 3 3 Objective HEAD AND NECK: No JVD. LUNGS: Coarse rhonchi. CARDIOVASCULAR: Regular S1 and S2 with no gallop. Defibrillator is in the left subclavian. ABDOMEN: Soft. EXTREMITIES: No pitting edema. Nba Ngo MD Mar 30, 2018 18:29
[2018-03-30] MEDS ORDERED: NS 500ML ONE (18:44)
[2018-03-30] MEDS ORDERED: Tubing IV Secondary IV ONE (18:44)
[2018-03-30] MEDS ORDERED: NS 275ml ONE (18:44)
[2018-03-31] MEDS ORDERED: Bactrim-DS 1 tab ORAL SCH (09:00)
--- NOTE | 2018-04-01 00:24 | General Progress Note ---
Assessment/Plan Assessment/Plan [place] Schizophrenia. PLAN: 1. The patient will be started on risperidone 2 mg at bedtime. 2. Provide the patient with reality orientation and supportive therapy. Discussed with the primary team. Subjective Date patient seen: Mar 31, 2018 Neurologic/Psychiatric: Reports: anxiety, depressed, emotional problems Allergies: Coded Allergies: No Known Allergies (Unverified , 03/26/18) Objective Height (Feet): 5 Height (Inches): 11.00 Weight (Pounds): 196 General Appearance: no apparent distress, alert Neurologic: oriented x 3, responsive, depressed affect Zara Herrera MD Apr 01, 2018 00:24
== END 2018-03-30 18:45 | disposition home or self-care (01) | DRG 135 ==
LOC: EDBD 19:26 → EMR 20:01 → 2E 22:21 → EDBEDREQ 22:34 → 2E 23:15
DX: S22.20XA Unspecified fracture of sternum, initial encounter for closed fracture (principal); B20 Human immunodeficiency virus [HIV] disease; I50.9 Heart failure, unspecified; I34.0 Nonrheumatic mitral (valve) insufficiency; W10.0XXA Fall (on)(from) escalator, initial encounter; Z95.810 Presence of automatic (implantable) cardiac defibrillator; I25.10 Atherosclerotic heart disease of native coronary artery without angina pectoris; F20.9 Schizophrenia, unspecified; Z95.0 Presence of cardiac pacemaker; R51 Headache; R55 Syncope and collapse
CPT/HCPCS: 36415; 70450; 71045; 71250; 80053; 80307; 81003; 82550; 82553; 83690; 83880; 84484; 85025; 85379; 85610; 85730; 93005; 93306; 94664; 96360; 99285